=== PATIENT | male | born 1950 | race Caucasian/White ===

== ENCOUNTER 2019-05-01 13:35 | Emergency (ER) | payer MEDICARE, SELFPAY ==
[2019-05-01 13:40] VITALS: BP 146/84; PULSE 65; RESP 16; TEMP 36.6; O2SAT 99; BMI 32.6
--- NOTE | 2019-05-01 13:48 | CTR_ITS ---
PROCEDURE INFORMATION: Exam: CT Abdomen And Pelvis Without Contrast Exam date and time: 05/01/2019 1:49 PM Age: 68 years old Clinical indication: Other: Hematuria TECHNIQUE: Imaging protocol: Computed tomography of the abdomen and pelvis without contrast. Total DLP: 1702.13 mGy-cm Radiation optimization: All CT scans at this facility use at least one of these dose optimization techniques: automated exposure control; mA and/or kV adjustment per patient size (includes targeted exams where dose is matched to clinical indication); or iterative reconstruction. COMPARISON: No relevant prior studies available. FINDINGS: Lungs: Partially visualized noncalcified lesion at the left lung base measures 1.9 centimetres. Liver: Subcentimeter low-density hepatic lesions have benign features. Follow-up is not necessary. Gallbladder and bile ducts: Normal. No calcified stones. No ductal dilation. Pancreas: Normal. No ductal dilation. Spleen: Subcentimeter incidental splenule. Adrenals: Normal. No mass. Kidneys and ureters: Normal. No hydronephrosis. Stomach and bowel: Unremarkable. No obstruction. No mucosal thickening. Appendix: A normal appendix is identified. Intraperitoneal space: Unremarkable. No free air. No significant fluid collection. Vasculature: Unremarkable. No abdominal aortic aneurysm. Lymph nodes: Unremarkable. No enlarged lymph nodes. Bladder: Unremarkable as visualized. Reproductive: Prostate gland indents the base of the bladder consistent with median lobe enlargement. 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 S1 vertebra is a transitional lumbosacral vertebra great there is spondylolisthesis at L5-S1 with uncovering of the disc and severe bilateral neural foraminal narrowing with compression of the exiting nerve roots. Soft tissues: Unremarkable. CT/CT kidney stone 73825 IMPRESSION: 1. Partially visualized noncalcified lesion at the left lung base measures 1.9 centimetres.Highly suspicious nodule(s). Consider PET/CT, or tissue sampling.(pilar Mae al., Fleischner Society, 2017) 2. Prostate gland indents the base of the bladder consistent with median lobe enlargement. 3. 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 Radiation Dose CTDIVOL = (mGy): DLP = 1702.13 (mGy-cm)
--- NOTE | 2019-05-01 13:48 | ED_ITS ---
HPI - Male Genitourinary General: Chief complaint: Urogenital-Male Stated complaint: bloody urine Time Seen by Provider: 05/01/19 13:47 Source: patient Mode of arrival: ambulatory Limitations: no limitations History of Present Illness: HPI Narrative: Patient comes in today for complaints of noticing blood at the meatus of the penis this morning. Patient denies any previous episodes. Patient does have some history of elevated PSA. Patient does report some difficulty with establishing a flow of urine in the morning. Patient denies any pain or discomfort. Patient reports no routine medications except niacin. Associated symptoms: Reports hematuria Review of Systems 2 General: Reports: 10 or more systems reviewed and unremarkable except in HPI and below : Reports: blood in urine PFS ED PFSH: Statuses (acute, chronic, etc) shown below reflect problem list status as previously entered and may not be historically accurate Social History Smoking and tobacco status: never smoked Physical Exam Const: COMMON NORMALS: no apparent distress and oriented x3 GENERAL APPEARANCE: cooperative HENMT: COMMON NORMALS: normocephalic, external ears normal, EAC's normal, TM's normal bilaterally and external nose normal HEAD & SCALP: normal to inspection and normocephalic FACE & SINUS: normal facial exam NOSE: external nose normal GENERAL EAR: hearing not grossly impaired EXTERNAL EAR: Yes external ears normal EXTERNAL AUDITORY CANAL: EAC's normal TYMPANIC MEMBRANE: TM's normal bilaterally MOUTH: oral and palatal mucosa normal THROAT: posterior oropharynx normal Eye: COMMON NORMALS: PERRL and EOMs intact bilaterally PUPIL: Yes PERRL Neck/C-Spine: COMMON NORMALS: full ROM and no lymphadenopathy Lymph: LYMPHATIC: no lymphedema noted Chest: COMMONS NORMALS: inspection of chest normal and palpation of chest normal Resp: COMMON NORMALS: normal respiratory effort and clear to auscultation bilaterally AUSCULTATION: clear to auscultation bilaterally Cardio: COMMON NORMALS: regular rate and regular rhythm RATE: regular rate RHYTHM: regular rhythm GI: COMMON NORMALS: normal to inspection, nondistended, normoactive bowel sounds and non-tender : COMMON NORMALS: Yes no CVA tenderness BLADDER/KIDNEY EXAM: Yes no CVA tenderness Back/Pelvis: COMMON NORMALS: no CVA tenderness and thoracic and lumbar spine normal to inspection Extremity: COMMON NORMALS: normal to inspection GENERAL: No edema Neuro: COMMON NORMALS: oriented x3, moves all extremities and no focal motor deficits Psych: COMMON NORMALS: mental status grossly normal and cooperative Skin: COMMON NORMALS: no rashes or lesions noted GENERAL SKIN EXAM: no rashes or lesions noted Course Vital Signs: Vital signs: Vital Signs Temperature 98 F 05/01/19 13:40 Pulse Rate 57 L 05/01/19 15:04 Respiratory Rate 16 05/01/19 15:04 Blood Pressure 153/89 05/01/19 15:04 Pulse Oximetry 99 05/01/19 13:40 MDM - Male MDM Narrative: Medical decision making narrative: Patient comes in today with concerns of blood being noticed in his urine this morning. On exam patient appears well. Abdomen soft nontender. No CVA tenderness. Skin is warm and dry and color is pink. Differential diagnosis includes hematuria, prostate cancer, prostatitis, urinary tract infection, bladder tumor, renal calculi. Laboratory values noted blood in the urine otherwise was insignificant. Good renal function was noted. CT scan of the abdomen and pelvis noted a nodule in the left lung base and enlargement of the prostate. No renal calculi was noted. Reviewed exam with patient with recommendations for follow-up with urology Dr. Pickard for further evaluation the hematuria also reviewed abnormal find with the nodule in the left lower lung base with recommendations for further evaluation with either further imaging or repeat imaging. Patient reports understanding and agreed to plan. Lab Data: Labs: Lab Results 05/01/19 05/01/19 05/01/19 Range/Units 13:57 13:57 14:05 WBC 6.5 (4.0-10.0) 10^3/ uL RBC 4.58 (4.1-5.3) 10^6/u L Hgb 13.8 (11.7-16.6) g/dL Hct 41.3 L (42.0-52.0) % MCV 90.2 (80-94) fL MCH 30.1 (28.0-34.0) pg MCHC 33.4 (30.0-36.0) g/dL RDW 12.3 (12.1-15.1) % Plt Count 220 (130-400) 10^3/c mm MPV 10.8 H (7.4-10.4) fL Neut % (Auto) 55.4 % Lymph % (Auto) 35.1 % [place] % (Auto) 7.1 % Eos % (Auto) 1.7 % Baso % (Auto) 0.5 % Neut # (Auto) 3.6 (1.8-7.7) 10^3/u L Lymph # (Auto) 2.3 (0.8-4.8) 10^3/u L [place] # (Auto) 0.5 (0.2-0.9) 10^3/u L Eos # (Auto) 0.1 (0.0-0.8) 10^3/u L Baso # (Auto) 0.0 (0.0-0.1) 10^3/u L Nucleated RBC % (a uto) 0 % Nucleated RBCs # 0.0 /100WBC Sodium 134 L (136-145) mmol/L Potassium 4.3 (3.5-5.1) mmol/L Chloride 100 (98-107) mmol/L Carbon Dioxide 25 (22-29) mmol/L Anion Gap 13.3 (5-19) BUN 15 (8-23) mg/dL Creatinine 1.1 (0.7-1.2) mg/dL GFR Calculation 67.0 L (90-130) mL/min Glucose 107 H (74-106) mg/dL Calcium 10.1 (8.8-10.2) mg/Dl Total Bilirubin 0.3 (0.15-1.2) mg/dL AST 23 (0-40) U/L ALT 23 (0-41) U/L Alkaline Phosphata se 58 (40-130) IU/L Total Protein 7.0 (6.6-8.7) g/dL Albumin 4.6 (3.5-5.2) g/dL Globulin 2.4 (1.3-4.6) g/dL Urine Color Yellow (Yellow) Urine Appearance Clear (CLEAR) Urine pH 5 (5-7) Ur Specific Gravit y 1.010 (1.005-1.030) Urine Protein Neg (Negative) Urine Glucose (UA) Norm (Normal) Urine Ketones Negative (Negative) Urine Occult Blood 3+ H (Negative) Urine Nitrate Negative (Negative) Urine Bilirubin Neg (NEGATIVE) Urine Urobilinogen Norm (Negative) mg/dL Ur Leukocyte Debra ase Negative (Negative) Urine RBC 15-25 H (0-2) /hpf Urine WBC None (0-5) /hpf Ur Squamous Epith Cells None (0-5) Urine Bacteria None (NONE) Discharge Plan Discharge Patient Disposition: Home, Self-Care Clinical Impression: Abnormal CT lung screening Hematuria Qualifiers: Hematuria type: unspecified type Qualified Code(s): R31.9 - Hematuria, unspecified Condition: Stable Prescriptions: New Bactrim DS 800-160 mg tablet 1 tab PO BID 14 Days Qty: 28 RF: 0 tamsulosin 0.4 mg capsule 0.4 mg PO DAILY Qty: 14 RF: 0 Discharge Orders: Discharge Order (Routine); Ordered 05/01/19 Ordered By: Sven Sanchez Discharge Diet: Usual diet Discharge Activity: Resume usual activity Activity Restrictions/Additional Instructions: Drink plenty of fluids You will need to follow-up with primary care for further evaluation of abnormal lung image at the left lung base Case management will call you with referral to Urology for further evalution of blood in urine Take medications as directed Follow-up with primary care in one week Coding Level of Care Code ED Health Information Assistant for Michael Corado Exam Problem Focused
[2019-05-01 14:00] LABS: Basophils % 0.5 %; Eosinophils # 0.1 10^3/uL (0.0-0.8); Eosinophils % 1.7 %; Hematocrit 41.3 % (42.0-52.0); Hemoglobin 13.8 g/dL (11.7-16.6); Lymphocytes # 2.3 10^3/uL (0.8-4.8); Lymphocytes % 35.1 %; Mean Corpuscular HGB Conc 33.4 g/dL (30.0-36.0); Mean Corpuscular Hemoglobin 30.1 pg (28.0-34.0); Mean Corpuscular Volume 90.2 fL (80-94); Mean Platelet Volume 10.8 fL (7.4-10.4); Monocytes # 0.5 10^3/uL (0.2-0.9); Monocytes % 7.1 %; Neutrophils # 3.6 10^3/uL (1.8-7.7); Neutrophils % 55.4 %; Nucleated Red Blood Cells % 0 %; Platelet Count 220 10^3/cmm (130-400); Red Blood Count 4.58 10^6/uL (4.1-5.3); Red Cell Distribution Width 12.3 % (12.1-15.1); White Blood Count 6.5 10^3/uL (4.0-10.0)
[2019-05-01 14:14] LABS: Alanine Aminotransferase 23 U/L (0-41); Albumin Level 4.6 g/dL (3.5-5.2); Alkaline Phosphatase 58 IU/L (40-130); Anion Gap 13.3 (5-19); Aspartate Amino Transferase 23 U/L (0-40); Blood Urea Nitrogen 15 mg/dL (8-23); Calcium 10.1 mg/Dl (8.8-10.2); Carbon Dioxide 25 mmol/L (22-29); Chloride 100 mmol/L (98-107); Globulin 2.4 g/dL (1.3-4.6); Glucose 107 mg/dL (74-106); Potassium 4.3 mmol/L (3.5-5.1); Sodium 134 mmol/L (136-145); Total Bilirubin 0.3 mg/dL (0.15-1.2)
[2019-05-01 14:20] LABS: Bilirubin Urine Neg (NEGATIVE); Blood Urine 3+ (Negative); Glucose Urine UA Norm (Normal); Ketones Urine Negative (Negative); Leukocyte Esterase Urine Negative (Negative); Nitrate Urine Negative (Negative); Protein Urine Neg (Negative); Urine Appearance Clear (CLEAR); Urine Color Yellow (Yellow); Urobilinogen Urine Norm (Negative); pH Urine 5 (5-7)
[2019-05-01 14:26] LABS: RBC Urine 15-25 /hpf (0-2)
[2019-05-01 14:27] LABS: Add Urine Culture? Yes
[2019-05-01 15:04] VITALS: BP 153/89; PULSE 57; RESP 16
[2019-05-01 16:10] VITALS: BP 141/80; PULSE 58; O2SAT 99
--- NOTE | 2019-05-03 12:12 | DCPLANNER ---
brand protection manager had message to schedule a follow up appointment for patient with Dr. Pickard. brand protection manager called the office of Dr. Pickard, spoke with Sudha, gave clinic patients information. brand protection manager was told that patients information would be printed and given to Radha. Clinic will call patient with appointment information. brand protection manager will call for appointment information.
--- NOTE | 2019-05-04 14:51 | DCPLANNER ---
A follow up appointment was scheduled for Tuesday, May 07, 2019 at 10:[address] Pickard.
--- NOTE | 2019-05-11 13:50 | DCPLANNER ---
Patient did attend appointment scheduled for 05.07.[address] Pickard.
== END 2019-05-01 16:10 | disposition home or self-care (01) ==
PROVIDERS: Emergency Provider Nurse Practitioner Family
DX: R31.9 Hematuria, unspecified (principal); R91.8 Other nonspecific abnormal finding of lung field
CPT/HCPCS: 36415; 74176; 80053; 81001; 85025; 87086; 99282; A9270

== ENCOUNTER → 2019-05-07 12:18 | Outpatient (BNVA) | payer MEDICARE, SELFPAY | PROVIDERS: PCP Nurse Practitioner Family; Visit Provider Urology | DX: N41.1 Chronic prostatitis (principal); R97.20 Elevated prostate specific antigen [PSA]; R31.0 Gross hematuria; N40.1 Benign prostatic hyperplasia with lower urinary tract symptoms; N13.8 Other obstructive and reflux uropathy; N99.89 Other postprocedural complications and disorders of genitourinary system | CPT/HCPCS: 81001; 84153 ==

== ENCOUNTER 2019-05-18 13:58 | Outpatient (CLI) | payer MEDICARE, SELFPAY ==
--- NOTE | 2019-05-18 14:03 | CT_ITS ---
WS: [id number] CT CHEST TECHNIQUE: Noncontrast CT of the chest with coronal and sagittal reformatted images. CLINICAL INFORMATION: LUNG NODULE SEEN ON IMAGING COMPARISON: CT renal DLP: 1056.[address] scans at [facility] use at least one of these dose optimization techniques: automat ed exposure control; mA and/or kV adjustment per patient size (includes targeted exams where dose is matched to clinical indication); or iterative reconstruction. FINDINGS: Noncalcified spiculated mass in the left lower lobe posteriorly. Surrounding spiculation. Pulmonary m ass measures 2.0 x 1.8 x 2.2 cm suspicious for neoplasm. Slight atelectasis left lower lobe. Adjacent 3 mm noncalcified satellite nodule. Coronary calcification. No mediastinal lymphadenopathy. Subcarinal lymph node measuring 1.9 cm. Adren al glands are normal. Fatty atrophy of the pancreas. CT/CT chest wo con [id number] IMPRESSION: 1. Left lower lobe satellite pulmonary mass suspicious for neoplasm measuring 1.8 x 2.0 x 2.2 cm. This is behind the scapula and not amenable to CT-guided bi opsy. Recommend further evaluation with PET/CT. 2. Tiny satellite nodule in the left lower lobe measuring 3 mm. 3. Enlarged subcarinal lymph node measuring 1.9 CM. 4. Coronary calcification.
== END 2019-05-18 13:59 | disposition home or self-care (01) ==
LOC: RADWPI 14:02
PROVIDERS: PCP Internal Medicine; Visit Provider Internal Medicine
DX: I25.10 Atherosclerotic heart disease of native coronary artery without angina pectoris (principal); R91.8 Other nonspecific abnormal finding of lung field
CPT/HCPCS: 71250

== ENCOUNTER 2019-06-18 08:55 | Day surgery (SDC) | payer MEDICARE, SELFPAY ==
[2019-06-17 09:12] VITALS: BMI 32.6
[2019-06-18] VITALS (8 sets, daily range): BP systolic 135–147; BP diastolic 77–87; PULSE 62–85; RESP 12–18; TEMP 36.2–36.6; O2SAT 96–100
--- NOTE | 2019-06-18 09:49 | W.PM.OPSUD ---
Surgery/Procedure H&P Update DATE OF PROCEDURE: June 18, 2019 DATE H&P PERFORMED: 06/18/19 H&P UPDATE INFORMATION: I have reviewed H&P completed within last 30 days and I have examined patient prior to procedure PREOP DIAGNOSIS: Left lung nodule PLANNED PROCEDURE: Bronchoscopy with inspection of airway, possible endobronchial biopsies, endobronchial ultrasound-guided transbronchial needle aspiration of lymph nodes, navigational bronchoscopy guided fine-needle aspiration, forcep and Cytobrush of the left lower lobe nodule, percutaneous transthoracic needle biopsy of the left lower lobe lung nodule. The procedure has been discussed in detail with the patient including the risk of bleeding and pneumothorax. The patient understands the risks and would like to proceed with the procedure. He is a lifelong non-smoker. Operation Date: 06/18/19 12:00 Proposed Procedures p Navgational broncoscopy Ebus(Not Applicable) - MD jamee Zhao Verasael(Not Applicable) - Macho Cote MD
--- NOTE | 2019-06-18 10:03 | ANES.PREANE2 ---
Pre-Anesthetic Assessment Pre-Anesthetic Assessment: Height/Weight: Height 1.73 m Weight 97.522 kg Temp Pulse Resp BP Pulse Ox 97.1 F L 69 18 141/87 99 06/18/19 09:31 06/18/19 09:31 06/18/19 09:31 06/18/19 09:31 06/18/19 09:31 Preop Diagnosis: Left lung nodule Proposed Procedure: Operation Date: 06/18/19 12:00 Proposed Procedures p Navgational broncoscopy Ebus(Not Applicable) - Macho Cote MD s Veran(Not Applicable) - Macho Cote MD Last intake: Intake Last Liquid Date 06/17/19 Last Solid Date 06/17/19 Exam: Pre-Anes Outpt Exam: alert, oriented x 3, clear to auscultation bilaterally and regular rate & rhythm Airway: Submandibular: WNL Cervical ROM: Other MP: 2 Dentition: Caps : : UTI Musc/skel: Musc/skel: Lower Back Pain Comments: nonradiating Anesthetic Plan: ASA status: 3 PFSH Anesthesia PFSH: Social History Smoking and tobacco status: never smoked Second hand smoke exposure: Yes Alcohol intake: current Alcohol intake frequency: holidays/special occasions only Lives independently: Yes Household members: none Marital status: Legally Current occupational status: retired History of recent travel: No Current gender identity: Male Data Anesthesia Cardiac Studies: No Data to Display
[2019-06-18] MEDS: sodium chloride 0.9% 1,000 ML 30 ML IV (12:02)
[2019-06-18] MEDS: lidocaine 1% INJ 20 mL XX (13:48)
--- NOTE | 2019-06-18 14:54 | SUR.OPER ---
BALLOON REMOVED INTACT
--- NOTE | 2019-06-18 14:58 | P.OP_ITS ---
Operative Report Date of procedure: June 18, 2019 Pre-op Diagnosis: Left lung nodule Post-op diagnosis: same Brief History: This is a 68-year-old never smoker male coming in with incidentally found left lower lobe lung nodule and hilar lymphadenopathy on the CT scan. He is here for bronchoscopy, EBUS and navigational bronchoscopy Procedure: Name of the procedure: Bronchoscopy with inspection of the airway, bronchoalveolar lavage, transbronchial biopsies, Cytobrush and fine-needle aspiration under navigational bronchoscopy guidance, endobronchial ultrasound- guided transbronchial needle aspiration of lymph nodes and control of bleeding. Indication: Left lower lobe lung nodule concern for lung malignancy. Anesthesia: General anesthesia. Local anesthesia: The tiburcio in the right and left mainstem bronchi were anesthetized with 1% lidocaine, 3 mL. Description of the procedure: The procedure was explained to the patient and the consent was obtained. The patient was brought to the OR. The patient underwent endotracheal intubation for general anesthesia. Following induction of general anesthesia, the bronchoscope was advanced through the ET tube. The lower trachea appeared to be normal, no endotracheal lesion was seen. The tiburcio was sharp. The tiburcio, the right and left mainstem bronchi are anesthetized with 1% lidocaine. In a systematic manner bilateral bronchial tree was then examined. The bronchoscope was advanced into the left mainstem bronchus. There was no erythema,mucus and areas of cobblestoning. The left upper lobe, lingula and left lower lobe bronchi were examined up to the third subsegmental level and no abnormalities were identified. There is no endobronchial lesion, active bleeding or mucous plug. The bronchoscope was then introduced into the right mainstem bronchus. The right upper lobe, right middle lobe and right lower lobe bronchi were examined up to the third subsegmental level and no abnormalities were identified. Using navigational bronchoscopy transbronchial biopsies were performed from the left lower lobe nodule, fine-needle aspiration and Cytobrush was also performed. Bronchoalveolar lavage was performed from the lateral segment of the left lower lobe. 60 mL of saline was instilled, fluid return was 15 mL. Bloody. The endobronchial ultrasound was introduced through the ET tube. No significant lymphadenopathy was noted in the left hilum and left paratracheal lymph nodes. Enlarged subcarinal and right hilar lymphadenopathy was identified fine-needle aspiration was performed from lymph node station 4R, 7, 10 R Samples: 1. Bronchoalveolar lavage specimen was sent for Gram stain and culture, a venous culture, fungal stain and culture and cytology. 2. The transbronchial biopsies are sent for histopathology. 3. The fine-needle aspiration and Cytobrush were sent for cytology. 4. The transbronchial needle aspiration of the aforementioned lymph node groups were sent for cytology. Complications: There was no immediate complications. Follow-up: 1. Follow-up with me in 2 weeks time as outpatient.
== END 2019-06-18 17:03 | disposition home or self-care (01) ==
PROVIDERS: PCP Internal Medicine; Visit Provider Internal Medicine Critical Care Medicine
PROC: BB4BZZZ Ultrasonography of Pleura (ICD-10-PCS; CPT 31623; principal; 2019-06-18 12:00)
PROC: 0BJ08ZZ Inspection of Tracheobronchial Tree, Via Natural or Artificial Opening Endoscopic (ICD-10-PCS; CPT 31622; 2019-06-18 12:00)
DX: R91.8 Other nonspecific abnormal finding of lung field (principal); N40.1 Benign prostatic hyperplasia with lower urinary tract symptoms; N13.8 Other obstructive and reflux uropathy; Z82.49 Family history of ischemic heart disease and other diseases of the circulatory system
CPT/HCPCS: 31623; 31624; 31628; 31629; 31653; 12345; 71250; 87015; 87070; 87102; 87116; 87205; 87206; 87801; 88112; 88173; 88305; 88307; J1100; J2001; J2405; J2704; J2710; J3010; J3490; J7030

== ENCOUNTER 2019-07-06 05:52 | Day surgery (SDC) | payer MEDICARE, SELFPAY ==
[2019-07-01 13:20] VITALS: BMI 32.6
[2019-07-06] VITALS (8 sets, daily range): BP systolic 130–159; BP diastolic 60–97; PULSE 47–72; RESP 12–18; TEMP 36.1–37.4; O2SAT 97–100
--- NOTE | 2019-07-06 | CT_ITS ---
Guided Bronchoscopy Planning CT images; total exam DLP: 882.47 mGy-cm MTDD
--- NOTE | 2019-07-06 06:31 | P.ANESUD_ITS ---
Pre-Anesthetic Update Pre-Anesthetic Assessment: Date of Surgery/Procedure: 07/06/19 Preop Ayaka gnosis: Left lung nodule Proposed Procedure: Operation Date: 07/06/19 07:00 Proposed Procedures p Navgational broncoscopy Ebus(Not Applicable) - Macho Cote MD s Veran(Not Applicable) - Macho Cote MD Last Intake: 20:00 Exam: Pre-Anes Outpt Exam: alert, oriented x 3, clear to auscultation bilaterally and regular rate & rhythm Cardiac Studies: No Data to Display
--- NOTE | 2019-07-06 06:31 | ANES.PAUD2 ---
Pre-Anesthetic Update Pre-Anesthetic Assessment: Date of Surgery/Procedure: 07/06/19 Preop Diagnosis: Left lung nodule Proposed Procedure: Operation Date: 07/06/19 07:00 Proposed Procedures p Navgational broncoscopy Ebus(Not Applicable) - MD jamee Zhao Verasael(Not Applicable) - Macho Cote MD Last Intake: 20:00 Exam: Pre-Anes Outpt Exam: alert, oriented x 3, clear to auscultation bilaterally and regular rate & rhythm Cardiac Studies: No Data to Display
[2019-07-06] MEDS: sodium chloride 0.9% 1,000 ML 30 ML IV (06:47)
--- NOTE | 2019-07-06 07:05 | P.HPUD_ITS ---
Surgery/Procedure H&P Update DATE OF PROCEDURE: July 06, 2019 This is a 68-year-old gentleman with left lower lobe nodule for which he und erwent a previous bronchoscopy. Unfortunately this was nondiagnostic. The PET scan was positive for the nodule as well as possible subcarinal lymph node. On the EBUS of the subcarinal lymph node during the previous bronchoscopy there was suspicious cells for malignancy however no firm diagnosis was reached. The patient is here today to undergo the following procedure. There is no significant change since he was last seen. DATE H&P PERFORMED: 06/16/19 PREOP DIAGNOSIS: Left lung nodule PLANNED PROCEDURE: Bronchoscopy, endobronchial sound guided transbronchial needle aspiration of lymph nodes, navigational bronchoscopy guided transbronchial biopsies, fine- needle aspiration, transthoracic needle aspiration of the left lower lobe nodule. Operation Date: 07/06/19 07:00 Proposed Procedures p Navgational broncoscopy Ebus(Not Applicable) - Macho Cote MD s Veran(Not Applicable) - Macho Cote MD
--- NOTE | 2019-07-06 09:14 | XR_ITS ---
WS: [id number] XR chest 1V portable [id number] REASON FOR EXAM: post bronchoscopy FINDINGS: The cardiac silhouette is normal with normal mediastinal interface. The lung weeks are well aerated. No pneumothorax. No atelectasis pneumonia pulmonary edema. The hilum and apices normal. XR/XR chest 1V portable [id number] IMPRESSION: Negative chest for active pathology.
--- NOTE | 2019-07-06 09:15 | PM.OP ---
Operative Report Date of procedure: July 06, 2019 Pre-op Diagnosis: Left lung nodule Post-op diagnosis: same Brief History: 68-year-old gentleman who underwent bronchoscopy evaluation for left lower lobe pulmonary nodule turned out to be nondiagnostic. Today the patient is here for bronchoscopy and navigational bronchoscopy guided transthoracic needle aspiration of the left lower lobe nodule as well as endobronchial ultrasound-guided transbronchial needle aspiration of subcarinal lymph node. Procedure: Name of the procedure: Bronchoscopy with inspection of the airway, possible endobronchial biopsies, transbronchial biopsies, endobronchial ultrasound-guided transbronchial needle aspiration of lymph nodes, transthoracic needle biopsy of the left lower lobe nodule under navigational bronchoscopy guidance and control of bleeding. Indication: Left lower lobe nodule and subcarinal lymphadenopathy Anesthesia: General anesthesia. Local anesthesia: The tiburcio in the right and left mainstem bronchi were anesthetized with 1% lidocaine, 3 mL. Description of the procedure: The procedure was explained to the patient and the consent was obtained. The patient was brought to the OR. The patient underwent endotracheal intubation for general anesthesia. Following induction of general anesthesia, the patient was positioned in prone position. The bronchoscope was advanced through the ET tube. The lower trachea appeared to be normal. The tiburcio was sharp. The tiburcio, the right and left mainstem bronchi are anesthetized with 1% lidocaine. In a systematic manner bilateral bronchial tree was then examined. The airways bilaterally was normal. The navigational bronchoscopy was then used to identify primary and secondary tiburcio. Transthoracic needle aspiration was then performed under navigational guidance. 6 samples were obtained. The bronchoscope was then advanced again through the endotracheal tube while the patient in prone position. Blood was noted in the left lower lobe. No active bleeding was noted. Using navigational bronchoscopy fine-needle aspiration of the left lower lobe mass was then performed. Multiple samples were obtained and put in 1 container. The patient was then repositioned into supine. The endobronchial ultrasound was introduced through the ET tube Subcarinal lymphadenopathy was noted. Transbronchial needle aspiration was performed from station 7. Samples: 1. Transthoracic fine-needle aspiration was sent for histopathology. 2. Fine-needle aspiration using navigational bronchoscopy was sent for cytology. 3. Transbronchial needle aspiration of station 7 was sent for cytology. Complications: There was no immediate complications. There is no significant bleeding. Chest x-ray: Pending
--- NOTE | 2019-07-06 11:52 | SUR.OPER ---
balloon removed in tact. 2 cytology specimens taken to lab and given to Carmen. specimen # 1 fna lll mass specimen #2 station 7 one pathology specimen placed in pathology window. specimen #1 transthorasic needle biopsy lll mass
== END 2019-07-06 11:00 | disposition home or self-care (01) ==
PROVIDERS: PCP Internal Medicine; Visit Provider Internal Medicine Critical Care Medicine
PROC: BB4BZZZ Ultrasonography of Pleura (ICD-10-PCS; CPT 31628; principal; 2019-07-06 07:00)
PROC: 0BJ08ZZ Inspection of Tracheobronchial Tree, Via Natural or Artificial Opening Endoscopic (ICD-10-PCS; CPT 31622; 2019-07-06 07:00)
DX: R91.8 Other nonspecific abnormal finding of lung field (principal); N40.1 Benign prostatic hyperplasia with lower urinary tract symptoms; N13.8 Other obstructive and reflux uropathy; Z82.49 Family history of ischemic heart disease and other diseases of the circulatory system
CPT/HCPCS: 31628; 31652; 32554; 12345; 71045; 77011; 88112; 88173; 88305; 88307; J2370; J2405; J2704; J2710; J3010; J3490; J7030

== ENCOUNTER 2019-07-14 13:13 | Outpatient (CLI) | payer MEDICARE, SELFPAY | END 2019-07-14 13:14 | disposition home or self-care (01) | LOC: ONCMED 13:13 | PROVIDERS: PCP Internal Medicine; Referring Provider Internal Medicine Critical Care Medicine; Visit Provider Internal Medicine Hematology & Oncology | DX: R91.8 Other nonspecific abnormal finding of lung field (principal); N40.0 Benign prostatic hyperplasia without lower urinary tract symptoms; N41.1 Chronic prostatitis; F10.10 Alcohol abuse, uncomplicated | CPT/HCPCS: 99203 ==

== ENCOUNTER → 2021-01-16 09:23 | Outpatient (BNVA) | payer MEDICARE, SELFPAY | PROVIDERS: PCP Internal Medicine; Visit Provider Urology | DX: N13.8 Other obstructive and reflux uropathy (principal); N40.1 Benign prostatic hyperplasia with lower urinary tract symptoms; R97.20 Elevated prostate specific antigen [PSA] | CPT/HCPCS: 81003 ==

== ENCOUNTER → 2021-08-02 12:54 | Outpatient (BNVA) | payer MEDICARE, SELFPAY | PROVIDERS: PCP Internal Medicine; Visit Provider Urology | DX: R97.20 Elevated prostate specific antigen [PSA] (principal); N40.1 Benign prostatic hyperplasia with lower urinary tract symptoms; N13.8 Other obstructive and reflux uropathy; N20.1 Calculus of ureter | CPT/HCPCS: 81003; 84153 ==

== ENCOUNTER 2021-11-23 07:19 | Outpatient (CLI) | payer MEDICARE, SELFPAY ==
[2021-11-23 08:12] LABS: Prostate Specific AG Urology 9.39 ng/mL (0-4)
== END 2021-11-23 07:20 | disposition home or self-care (01) ==
LOC: LAB 07:22
PROVIDERS: PCP Internal Medicine; Visit Provider Urology
DX: R97.20 Elevated prostate specific antigen [PSA] (principal); N40.1 Benign prostatic hyperplasia with lower urinary tract symptoms; N13.8 Other obstructive and reflux uropathy
CPT/HCPCS: 36415; 51741; 51798; 81003; 84153; 99213

== ENCOUNTER → 2022-06-07 15:28 | Outpatient (BNVA) | payer MEDICARE, SELFPAY | PROVIDERS: PCP Internal Medicine; Visit Provider Nurse Practitioner | DX: J02.9 Acute pharyngitis, unspecified (principal) | CPT/HCPCS: 87071; 87880 ==

== ENCOUNTER → 2022-09-13 08:08 | Outpatient (BNVA) | payer MEDICARE, SELFPAY | PROVIDERS: PCP Internal Medicine; Visit Provider Nurse Practitioner Family | DX: L57.0 Actinic keratosis (principal); S20.461A Insect bite (nonvenomous) of right back wall of thorax, initial encounter; W57.XXXA Bitten or stung by nonvenomous insect and other nonvenomous arthropods, initial encounter; L57.8 Other skin changes due to chronic exposure to nonionizing radiation | CPT/HCPCS: 17000; 17003; 99214 ==

== ENCOUNTER → 2023-09-11 08:39 | Outpatient (BNVA) | payer MEDICARE, SELFPAY | PROVIDERS: PCP Internal Medicine; Visit Provider Nurse Practitioner Family | DX: D48.5 Neoplasm of uncertain behavior of skin (principal); L57.0 Actinic keratosis; L81.8 Other specified disorders of pigmentation; D22.5 Melanocytic nevi of trunk | CPT/HCPCS: 11102; 17000; 99213 ==

== ENCOUNTER 2023-09-23 10:08 | Outpatient (CLI) | payer MEDICARE, SELFPAY ==
--- NOTE | 2023-09-23 10:12 | XRR_ITS ---
PROCEDURE INFORMATION: Exam: XR Chest Exam date and time: 09/23/2023 10:27 AM Age: 72 years old Clinical indication: Cough; Prior surgery; Surgery date: 6+ months; Surgery type: Port; Patient HX: HX of lung cacner, PT states he had covid two weeks ago. Has had trouble breathing since; Additional info: Persistent cough TECHNIQUE: Imaging protocol: Radiologic exam of the chest. Views: 2 views. COMPARISON: CR XR chest 1V portable [id number] 07/06/2019 10:18 AM FINDINGS: Tubes, catheters and devices: New right chest port projects in satisfactory position. Lungs: Decreased abnormality left lung base. Otherwise, unremarkable. Pleural spaces: Unremarkable. No pleural effusion. No pneumothorax. Heart/Mediastinum: Unremarkable. No cardiomegaly. Bones/joints: Nothing acute. XR/XR chest 2V* [id number] IMPRESSION: Decreased abnormality left lung base.
== END 2023-09-23 10:09 | disposition home or self-care (01) ==
LOC: RAD 10:09
PROVIDERS: PCP Family Medicine; Visit Provider Clinical Nurse Specialist Adult Health
DX: J20.8 Acute bronchitis due to other specified organisms (principal); B96.89 Other specified bacterial agents as the cause of diseases classified elsewhere; R91.8 Other nonspecific abnormal finding of lung field
CPT/HCPCS: 71046

== ENCOUNTER → 2023-09-25 10:49 | Outpatient (BNVA) | payer MEDICARE, SELFPAY | PROVIDERS: PCP Family Medicine; Visit Provider Dermatology | DX: D03.59 Melanoma in situ of other part of trunk (principal) | CPT/HCPCS: 11604; 12034 ==

== ENCOUNTER → 2024-01-08 13:36 | Outpatient (BNVA) | payer MEDICARE, SELFPAY | PROVIDERS: PCP Family Medicine; Visit Provider Nurse Practitioner Family | DX: L57.0 Actinic keratosis (principal); D22.5 Melanocytic nevi of trunk; L81.8 Other specified disorders of pigmentation; L81.4 Other melanin hyperpigmentation; L57.8 Other skin changes due to chronic exposure to nonionizing radiation; L85.3 Xerosis cutis; D84.9 Immunodeficiency, unspecified; Z86.006 Personal history of melanoma in-situ | CPT/HCPCS: 17000; 99213 ==

== ENCOUNTER → 2024-05-10 13:52 | Outpatient (BNVA) | payer MEDICARE, SELFPAY | PROVIDERS: PCP Family Medicine; Visit Provider Nurse Practitioner Family | DX: L21.8 Other seborrheic dermatitis (principal); L81.4 Other melanin hyperpigmentation; Z08 Encounter for follow-up examination after completed treatment for malignant neoplasm; Z86.006 Personal history of melanoma in-situ; D48.5 Neoplasm of uncertain behavior of skin; L57.0 Actinic keratosis | CPT/HCPCS: 11102; 17000; 99214 ==

== ENCOUNTER → 2024-08-31 13:51 | Outpatient (BNVA) | payer MEDICARE, SELFPAY | PROVIDERS: PCP Family Medicine; Visit Provider Nurse Practitioner Family | DX: B35.4 Tinea corporis (principal); L81.4 Other melanin hyperpigmentation; L81.8 Other specified disorders of pigmentation; Z86.006 Personal history of melanoma in-situ; Z08 Encounter for follow-up examination after completed treatment for malignant neoplasm; Z85.828 Personal history of other malignant neoplasm of skin; Z09 Encounter for follow-up examination after completed treatment for conditions other than malignant neoplasm; Z87.2 Personal history of diseases of the skin and subcutaneous tissue; D48.5 Neoplasm of uncertain behavior of skin; L57.0 Actinic keratosis | CPT/HCPCS: 11102; 17000; 99213 ==

== ENCOUNTER → 2024-09-15 09:31 | Outpatient (BNVA) | payer MEDICARE, SELFPAY | PROVIDERS: PCP Family Medicine; Visit Provider Dermatology | DX: C44.319 Basal cell carcinoma of skin of other parts of face (principal) | CPT/HCPCS: 17282 ==

== ENCOUNTER → 2024-09-29 10:40 | Outpatient (BNVA) | payer MEDICARE, SELFPAY | PROVIDERS: PCP Family Medicine; Visit Provider Family Medicine | DX: Z00.00 Encounter for general adult medical examination without abnormal findings (principal); R79.89 Other specified abnormal findings of blood chemistry; Z13.6 Encounter for screening for cardiovascular disorders; R97.20 Elevated prostate specific antigen [PSA]; J20.8 Acute bronchitis due to other specified organisms; B96.89 Other specified bacterial agents as the cause of diseases classified elsewhere | CPT/HCPCS: 80048; 80061; 84153 ==

== ENCOUNTER → 2025-01-03 08:26 | Outpatient (BNVA) | payer MEDICARE, SELFPAY | PROVIDERS: PCP Family Medicine; Visit Provider Nurse Practitioner Family | DX: L81.8 Other specified disorders of pigmentation (principal); L81.4 Other melanin hyperpigmentation; L57.8 Other skin changes due to chronic exposure to nonionizing radiation; Z86.006 Personal history of melanoma in-situ; Z08 Encounter for follow-up examination after completed treatment for malignant neoplasm; Z85.828 Personal history of other malignant neoplasm of skin | CPT/HCPCS: 99213 ==